=== PATIENT | male | born 1980 | race Caucasian/White ===

== ENCOUNTER 2017-04-14 11:37 | Emergency (ER) | payer OTHER ==
[~2017-04-14] VITALS: Wt 99.8 kg
[2017-04-14] MEDS ORDERED: CLARITIN10 MG PO (12:31)
[2017-04-14] MEDS ORDERED: PREDNISONE10 MG PO (12:31)
[2017-04-14] MEDS ORDERED: FLONASE ALLERG9.9 ML NAS (12:31)
[2017-04-14] MEDS ORDERED: ROBITUSSIN DM 105 ML PO (12:31)
== END 2017-04-14 14:03 | disposition home or self-care (01) ==
LOC: ED 11:37
DX: J20.9 Acute bronchitis, unspecified (principal); R03.0 Elevated blood-pressure reading, without diagnosis of hypertension; F17.200 Nicotine dependence, unspecified, uncomplicated

== ENCOUNTER 2020-06-04 12:55 | Emergency (ER) | payer BC ==
[~2020-06-04] VITALS: Ht 175.2 cm; Wt 106.6 kg
[~2020-06-04 12:55] MED LIST: CLARITIN10 MG PO; FLONASE ALLERG9.9 ML NAS; PREDNISONE10 MG PO; ROBITUSSIN DM 105 ML PO
[2020-06-04] MEDS ORDERED: TESSALON PERLE100 MG PO (13:48)
[2020-06-04] MEDS ORDERED: PREDNISONE20 M1 PO (13:48)
== END 2020-06-04 13:54 | disposition home or self-care (01) ==
LOC: ED 12:55
DX: J45.901 Unspecified asthma with (acute) exacerbation (principal); Z79.899 Other long term (current) drug therapy

== ENCOUNTER 2021-07-29 13:00 | Emergency (ER) | payer OTHER ==
[~2021-07-29] VITALS: Ht 175.2 cm; Wt 113.4 kg
[~2021-07-29 13:00] MED LIST changes: +PREDNISONE20 M1 PO; +TESSALON PERLE100 MG PO
[2021-07-29 14:33] LABS: BASO % 0.4 % (0.0-1.0); EOS # 0.2 10*3/uL (0.0-0.4); HEMATOCRIT 44.2 % (42.0-52.0); LYMPH # 2.6 10*3/uL (1.3-4.4); LYMPH % 27.4 % (27.0-41.0); MEAN CELL VOLUME 91.1 fl (80.0-94.0); MEAN CORPUSCULAR HGB 31.8 pg (27.0-31.0); MEAN CORPUSCULAR HGB CONC 34.8 g/dl (33.0-37.0); MEAN PLATELET VOLUME 9.5 fl (9.6-12.3); MONO % 10.3 % (3.0-9.0); NEUT # 5.7 10*3/uL (2.3-7.9); NEUT % 59.7 % (47.0-73.0); PLATELET COUNT AUTOMATED 219 10*3/uL (130-400); RED BLOOD COUNT 4.85 10*6/uL (4.50-5.90); RED CELL DISTRI WIDTH 12.3 % (0-14.5); WHITE BLOOD COUNT 9.6 10*3/uL (4.8-10.8)
[2021-07-29 14:40] LABS: BUN 11 mg/dl (7-24); CHLORIDE 109 mmol/L (98-107); CREATININE 0.77 mg/dL (0.70-1.30); POTASSIUM 4.6 mmol/L (3.5-5.1); SODIUM 140 mmol/L (136-145)
[2021-07-29] MEDS ORDERED: INDOMETHACIN25 M1 PO (15:20)
[2021-07-29 16:39] LABS: BODY FLUID WBC 590 /uL
[2021-07-29 18:18] LABS: BF LYMPHOCYTES 16 %; BF MACROPHAGES 63 %; BF NEUTROPHILS 21 %
== END 2021-07-29 15:30 | disposition home or self-care (01) ==
LOC: ED 13:00
PROVIDERS: Emergency Medicine
DX: M25.461 Effusion, right knee (principal)

== ENCOUNTER 2022-12-08 13:14 | Emergency (ER) | payer OTHER ==
[~2022-12-08] VITALS: Ht 175.2 cm; Wt 108.9 kg
[~2022-12-08 13:14] MED LIST changes: +AMOX-CLAV 875-1 EACH PO; +AUGMENTIN 500500 M1 PO; +COLACE100 MG PO; +HYDROCODONE-AC1 EAC1 PO; +INDOMETHACIN25 M1 PO; +ONDANSETRON HYDR4 M1 PO; +Percocet 325 MG1 TAB PO; +VITAMIN D350 MC2 PO
== END 2022-12-08 14:40 | disposition left against medical advice (07) ==
LOC: ED 13:14
DX: R06.02 Shortness of breath (principal); R05.9 Cough, unspecified; R07.89 Other chest pain; R09.81 Nasal congestion; Z53.21 Procedure and treatment not carried out due to patient leaving prior to being seen by health care provider

== ENCOUNTER 2023-02-06 11:34 | Emergency (ER) | payer OTHER ==
[~2023-02-06] VITALS: Wt 108.9 kg
[2023-02-06] MEDS ORDERED: HYDROCODONE-AC1 EAC1 PO (14:31)
[2023-02-06] MEDS ORDERED: CYCLOBENZAPRINE10 MG PO (14:31)
== END 2023-02-06 14:40 | disposition home or self-care (01) ==
LOC: ED 11:34
DX: S46.211A Strain of muscle, fascia and tendon of other parts of biceps, right arm, initial encounter (principal); M54.6 Pain in thoracic spine; Z79.899 Other long term (current) drug therapy; Z79.2 Long term (current) use of antibiotics; X50.0XXA Overexertion from strenuous movement or load, initial encounter; Y93.89 Activity, other specified; Y92.89 Other specified places as the place of occurrence of the external cause; Y99.8 Other external cause status

== ENCOUNTER 2025-01-26 11:13 | Emergency (ER) | payer OTHER ==
[~2025-01-26] VITALS: Ht 175.2 cm; Wt 108.9 kg
[~2025-01-26 11:13] MED LIST changes: +CYCLOBENZAPRINE10 MG PO
[2025-01-26] MEDS ORDERED: Acetaminophen/Oxycodone 5 MG/325 MG TABLET PO ONE (13:55)
[2025-01-26] MEDS ORDERED: AMOX-CLAV 875-1 EACH PO (14:21)
== END 2025-01-26 15:00 | disposition home or self-care (01) ==
LOC: ED 11:13
DX: S61.210A Laceration without foreign body of right index finger without damage to nail, initial encounter (principal); J45.909 Unspecified asthma, uncomplicated; Z98.890 Other specified postprocedural states; W45.8XXA Other foreign body or object entering through skin, initial encounter; Y93.89 Activity, other specified; Y92.89 Other specified places as the place of occurrence of the external cause; Y99.8 Other external cause status